=== PATIENT | male | born 1960 | race Caucasian/White ===

== ENCOUNTER 2022-12-19 10:05 | Outpatient (CLI) | payer SELFPAY ==
--- NOTE | 2022-12-19 11:40 | W.ANESCHARGE ---
Anesthesia Charges Start Date/Time Anesthesia Start Date: 12/19/22 Anesthesia Start Time: 11:55 Stop Date/Time Anesthesia Stop Date: 12/19/22 Anesthesia Stop Time: 12:20
--- NOTE | 2022-12-19 12:22 | W.ANESCHARGE ---
Anesthesia Charges Start Date/Time Anesthesia Start Date: 12/19/22 Anesthesia Start Time: 11:55 Stop Date/Time Anesthesia Stop Date: 12/19/22 Anesthesia Stop Time: 12:20
== END 2022-12-19 10:06 | disposition home or self-care (01) ==
PROVIDERS: PCP Family Medicine; Visit Provider Internal Medicine Gastroenterology
DX: Z12.11 Encounter for screening for malignant neoplasm of colon (principal); Z86.010 Personal history of colon polyps
CPT/HCPCS: 00811; 00812; 45378; J2704

== ENCOUNTER 2023-03-14 19:57 | Observation (INO) | payer BC, SELFPAY ==
[2023-03-14] VITALS (19 sets, daily range): BP systolic 126–184; BP diastolic 64–105; PULSE 146–156; RESP 20; TEMP 36.1; O2SAT 96–98; BMI 45.2
[2023-03-14 20:42] LABS: Appearance Urine Cloudy (Clear); Bilirubin Urine Negative (Negative); Blood Urine 3+ (Negative); Glucose Urine Negative (Negative); Ketones Urine Negative (Negative); Leukocyte Esterase Urine 2+ (Negative); Nitrite Urine Positive (Negative); Protein Urine 2+ (Negative); Specific Gravity Urine 1.025 (1.000-1.030); Urobilinogen Urine 0.2 (0.2-1.0); pH Urine 7.5 (5.0-8.5)
[2023-03-14 20:42] LABS: Glucose, Point-of-Care* 213 mg/dl (60-115)
[2023-03-14 20:48] LABS: Color Urine Yellow (Yellow)
--- NOTE | 2023-03-14 20:49 | ED.NURSE ---
to replace suprapubic catheter.
[2023-03-14 20:52] LABS: Bacteria Urine Moderate; Squamous Epithelial Cell Urine Few (None-Few)
[2023-03-14 21:07] LABS: Lactate* 3.4 mmol/L (0.5-1.9)
[2023-03-14 21:12] LABS: Basophils Absolute Auto 0.04 K/uL (0.00-0.30); Basophils Percent Auto 0.4 % (0.0-3.0); Eosinophils Absolute Auto 0.23 K/uL (0.00-0.50); Eosinophils Percent Auto 2.2 % (0.0-7.0); Hematocrit 40.4 % (37.0-53.0); Hemoglobin* 13.5 gm/dL (13.5-17.5); Immature Granulocytes Abs Auto 0.03 K/uL (0.00-0.30); Immature Granulocytes Pct Auto 0.3 %; Lymphocytes Absolute Auto 2.72 K/uL (0.90-2.90); Lymphocytes Percent Auto 25.6 % (20-44); Mean Corpuscular HGB Conc 33 gm/dL (32-36); Mean Corpuscular Hemoglobin 28 pg (26-34); Mean Corpuscular Volume 82 fL (80-100); Monocytes Percent Auto 7.4 % (0.0-11.0); Neutrophils Absolute Auto 6.82 K/uL (1.7-7.0); Neutrophils Percent Auto 64.1 % (42.0-72.0); Platelet Count* 301 K/uL (140-440); RDW Coefficient of Variation % 14.1 % (11.5-15.5); White Blood Count* 10.63 K/uL (4.50-11.00)
[2023-03-14 21:17] LABS: Slide Review Reflex No
[2023-03-14 21:24] LABS: Chloride* 97 mmol/L (96-114); Sodium* 137 mmol/L (135-149)
[2023-03-14 21:25] LABS: Potassium* 3.9 mmol/L (3.6-5.1)
[2023-03-14 21:27] LABS: Anion Gap 14 mEq/L (7-15); Blood Urea Nitrogen* 17 mg/dL (7-30); Carbon Dioxide* 26 mmol/L (20-32); Creatinine* 0.6 mg/dL (0.5-1.5); Est. Creatinine Clearance* 85.14; Estimated Glomerular Filt Rate 110 ml/min
[2023-03-14 21:28] LABS: Glucose* 230 mg/dL (60-115)
[2023-03-14] MEDS: ADENOSINE 6 MG/2ML INJ IVP (21:33)
[2023-03-14] MEDS: ADENOSINE 6 MG/2ML INJ 12 MG IVP (21:43)
--- NOTE | 2023-03-14 21:44 | CRLHL7_ITS ---
For Patients: As a result of the Century Cures Act, medical imaging exams and procedure reports are released immediately into your electronic medical record. You may view this report before your referring provider. If you have questions, please contact your health care provider. INDICATION: Lower abdominal pain, has suprapubic catheter TECHNIQUE: CT abdomen and pelvis acquired with 149 cc Isovue 370 IV contrast. Permanently recorded images are archived. COMPARISON: None. FINDINGS: Lower chest: Unremarkable. Liver: Diffuse fatty infiltration. Normal contour. No suspicious mass. Gallbladder and bile ducts: Unremarkable. No stones or inflammation. No biliary dilatation. Pancreas: Unremarkable. No mass or inflammation. Spleen: Unremarkable. Normal in size. No masses. Adrenal glands: Unremarkable. No nodules. Kidneys, Ureters, and Bladder: Unremarkable. No suspicious masses, stones, or hydronephrosis. Unremarkable ureters. Indwelling suprapubic catheter. Mural thickening and inflammatory stranding about the bladder. GI tract: Large colon stool burden. Normal in caliber. No sign of inflammation. Normal appendix. Vasculature: Normal caliber abdominal aorta with mild atherosclerotic calcification. Mesenteric arteries are patent. Lymph nodes: No lymphadenopathy. Peritoneum/Abdominal Wall: Small fat-containing left periumbilical hernia. No free air or significant free fluid. Pelvis: Unremarkable. Bones: Partial ankylosis of the right sacroiliac joint. Moderate-sized foci of avascular necrosis within the femoral heads. No subchondral bone plate collapse identified. Multilevel spondylosis. IMPRESSION: 1. Indwelling suprapubic catheter with mural thickening and inflammatory stranding about the bladder. Findings can represent cystitis. Recommend correlation with urinalysis. 2. Large colonic stool burden. Recommend correlation for constipation. 3. Hepatic steatosis. 4. Moderate-sized foci of avascular necrosis within the femoral heads. No definite subchondral bone plate collapse. Please note that all CT scans at this facility use dose modulation, iterative reconstruction, and/or weight-based dosing when appropriate to reduce radiation dose to as low as reasonably achievable. Dictated by Rickey Workman MD @ 03/15/2023 12:33:58 AM (Electronically Signed)
[2023-03-14] MEDS: dilTIAZem 5 MG/ML inj 25 MG IVP (21:59)
[2023-03-14 22:17] LABS: Troponin I* < 0.01 ng/mL (0.01-0.04)
[2023-03-14] MEDS: 0.9 % SODIUM CHLORIDE 1000 ml 1,000 ML IV (22:32)
--- NOTE | 2023-03-14 22:35 | ED.GENADULT ---
HPI - General Adult General Date Seen: 03/14/23 Chief complaint: Urogenital Problems, Male Stated complaint: backed up catheter Time Seen by Provider: 03/14/23 20:01 Source: patient Mode of arrival: ambulatory Limitations: no limitations History of Present Illness HPI narrative: Patient is a 62-year-old male with a history of frequent bladder infections her requiring suprapubic catheter, diabetes, hypertension presenting to emergency department for a clogged suprapubic catheter. States he will let the catheter initially placed about 3 months ago and was last changed 27 days ago. He was doing well with that up until this afternoon when he knows there is no more drainage coming from it. He since then has been needing to urinate small amounts through his urethra. He states this is the 1st time he has urinate normally and several months due to the suprapubic catheter. Was just open have the Rosario replaced. He is also very tachycardic in the 150s. He denies chest pain, shortness of breath, weakness, numbness, headache, diarrhea, fevers, chills. He is mildly diaphoretic but he states that is baseline for him. No history of AFib is not currently on any blood thinners. Related Data Home Medications Medication Instructions Recorded Confirmed amitriptyline 25 mg tablet 25 mg PO QPM 03/14/23 03/14/23 amlodipine 10 mg tablet 10 mg PO DAILY 03/14/23 03/14/23 aspirin 81 mg chewable tablet 81 mg PO DAILY 03/14/23 03/14/23 chlorthalidone 50 mg tablet 50 mg PO DAILY 03/14/23 03/14/23 cyclobenzaprine 10 mg tablet 10 mg PO 3XD 03/14/23 03/14/23 diazepam 5 mg tablet 5 mg PO ONCE 03/14/23 03/14/23 gemfibrozil 600 mg tablet 600 mg PO BID 03/14/23 03/14/23 glipizide 10 mg tablet, extended 10 mg PO BID 03/14/23 03/14/23 release 24 hr insulin degludec 200 unit/mL (3 unit subcut 03/14/23 mL) subcutaneous pen (Tresiba FlexTouch U-200 insulin) insulin lispro 100 unit/mL subcut 03/14/23 subcutaneous pen (Humalog KwikPen (U-100) Insulin) lisinopril 40 mg tablet 40 mg PO DAILY 03/14/23 03/14/23 meloxicam 7.5 mg tablet 7.5 mg PO DAILY 03/14/23 03/14/23 metformin 1,000 mg tablet 1,000 mg PO BID 03/14/23 03/14/23 metoprolol succinate 200 mg 200 mg PO DAILY 03/14/23 03/14/23 tablet,extended release 24 hr multivitamin (Daily Multi-Vitamin 1 tab PO DAILY 03/14/23 03/14/23 tablet) oxycodone 5 mg tablet mg PO 03/14/23 peg 3350 240 gram-electrolytes ml PO 03/14/23 22.72 gram-6.72 g-5.84 g powdr for soln (Gavilyte-C) potassium chloride 20 mEq 20 meq PO BID 03/14/23 03/14/23 tablet,extended release(part/cryst) (Klor-Con M) Allergies Allergy/AdvReac Type Severity Reaction Status Date / Time doxepin Allergy Unknown Verified 03/14/23 23:27 gabapentin Allergy Unknown Verified 03/14/23 23:27 nortriptyline Allergy Unknown Verified 03/14/23 23:27 bees Allergy Unknown Uncoded 03/14/23 23:27 statins Allergy Unknown Uncoded 03/14/23 23:27 tape Allergy Unknown Uncoded 03/14/23 23:27 Review of Systems Status of ROS: Reports: 10 or more systems reviewed and unremarkable except as noted in History and below [facility] Medical History Follicular cystitis ?N30.30 - Trigonitis without hematuria (ICD-10) Backache, unspecified ?M54.9 - Dorsalgia, unspecified (ICD-10) Osteoarthritis of spine ?M47.9 - Spondylosis, unspecified (ICD-10) HTN (hypertension) ?I10 - Essential (primary) hypertension (ICD-10) JAKUB (obstructive sleep apnea) ?G47.33 - Obstructive sleep apnea (adult) (pediatric) (ICD-10) Obesity ?E66.9 - Obesity, unspecified (ICD-10) Suprapubic catheter ?Z93.59 - Other cystostomy status (ICD-10) DJD (degenerative joint disease) ?M19.90 - Unspecified osteoarthritis, unspecified site (ICD-10) Uncontrolled type II diabetes mellitus Depression, major ?F32.9 - Major depressive disorder, single episode, unspecified (ICD-10) Adenomatous colon polyp ?D12.6 - Benign neoplasm of colon, unspecified (ICD-10) Social History Smoking Status: Never smoker Exam Narrative: Exam Narrative: Const: Well-nourished, Well-developed, in mild distress Eyes: PERRL, no conjunctival injection, and symmetrical lids HENT: Atraumatic external nose and ears. Moist mucous membranes. Neck: Symmetric, trachea midline, No thyromegaly. CVS: Tachycardic, No murmurs or gallops. Peripheral pulses 2+ and equal in all extremities RESP: Unlabored respiratory effort. Clear to auscultation bilaterally. GI: Suprapubic tenderness, suprapubic catheter in place, No rebound or guarding. MSK:Extremities w/o deformity, Normal Active ROM Skin: Warm, Dry. No rashes or lesions. Neuro: Normal Muscle tone, No focal neurological deficits. Psych: Awake, Alert, & Oriented x3. Appropriate mood and affect. Const: Vital Signs, click to edit/add: Vital Signs - 24 hr 03/14/23 20:10 03/14/23 20:11 03/14/23 20:12 Temperature 97.0 F L Pulse Rate 152 H 152 H Pulse Rate [Right Radial] 156 H Respiratory Rate 20 Blood Pressure 139/91 H Blood Pressure [Ri ght Upper Arm] 155/81 H Pulse Oximetry 97 96 97 Oxygen Delivery Me thod Room Air 03/14/23 20:15 03/14/23 20:33 03/14/23 20:34 Temperature Pulse Rate 151 H 149 H 151 H Pulse Rate [Right Radial] Respiratory Rate Blood Pressure 184/105 H Blood Pressure [Ri ght Upper Arm] Pulse Oximetry 97 98 97 Oxygen Delivery Me thod 03/14/23 20:45 03/14/23 20:47 03/14/23 20:48 Temperature Pulse Rate 149 H 147 H 146 H Pulse Rate [Right Radial] Respiratory Rate Blood Pressure 178/83 H Blood Pressure [Ri ght Upper Arm] Pulse Oximetry 98 98 98 Oxygen Delivery Me thod 03/14/23 21:02 03/14/23 21:17 03/14/23 21:32 Temperature Pulse Rate Pulse Rate [Right Radial] Respiratory Rate Blood Pressure 154/97 H 147/89 H 134/87 Blood Pressure [Ri ght Upper Arm] Pulse Oximetry Oxygen Delivery Me thod 03/14/23 21:46 03/14/23 21:51 03/14/23 21:58 Temperature Pulse Rate Pulse Rate [Right Radial] Respiratory Rate Blood Pressure 139/93 H 138/76 157/74 H Blood Pressure [Ri ght Upper Arm] Pulse Oximetry Oxygen Delivery Me thod 03/14/23 22:02 03/14/23 22:17 03/14/23 22:31 Temperature Pulse Rate Pulse Rate [Right Radial] Respiratory Rate Blood Pressure 138/70 139/75 141/77 H Blood Pressure [Ri ght Upper Arm] Pulse Oximetry Oxygen Delivery Me thod 03/14/23 22:47 Temperature Pulse Rate Pulse Rate [Right Radial] Respiratory Rate Blood Pressure 126/64 Blood Pressure [Ri ght Upper Arm] Pulse Oximetry Oxygen Delivery Me thod Course Vital Signs Vital signs: Initial Vital Signs Temperature 97.0 F L 03/14/23 20:10 Temperature Source Temporal Artery Scan 03/14/23 20:10 Pulse Rate 156 H 03/14/23 20:10 Respiratory Rate 20 03/14/23 20:10 Blood Pressure 155/81 H 03/14/23 20:10 Blood Pressure Mean 105 03/14/23 20:10 Blood Pressure Position Sitting 03/14/23 20:10 Pulse Oximetry 97 03/14/23 20:10 Oxygen Delivery Method Room Air 03/14/23 20:10 Vital Signs Temperature 97.0 F L 03/14/23 20:10 Pulse Rate 156 H 03/14/23 20:10 Respiratory Rate 20 03/14/23 20:10 Blood Pressure 155/81 H 03/14/23 20:10 Pulse Oximetry 97 03/14/23 20:10 Oxygen Delivery Method Room Air 03/14/23 20:10 Temperature 97.0 F L 03/14/23 20:10 Pulse Rate 146 H 03/14/23 20:48 Respiratory Rate 20 03/14/23 20:10 Blood Pressure 126/64 03/14/23 22:47 Pulse Oximetry 98 03/14/23 20:48 Oxygen Delivery Method Room Air 03/14/23 20:10 Medications Administered Medications: Discontinued Medications Generic Name Dose Route Start Last Admin Trade Name Sun PRN Reason Stop Dose Admin Adenosine 6 mg 03/14/23 21:26 03/14/23 21:33 Adenosine 6 Mg/2ml Inj IVP 03/14/23 21:27 6 mg ONCE ONE Administration Adenosine 12 mg 03/14/23 21:44 03/14/23 21:43 Adenosine 6 Mg/2ml Inj IVP 03/14/23 21:45 12 mg ONCE ONE Administration Diltiazem HCl 25 mg 03/14/23 21:44 03/14/23 21:59 Diltiazem 5 Mg/Ml Inj IVP 03/14/23 21:45 25 mg ONCE ONE Administration Sodium Chloride 1,000 mls @ 1,000 mls/hr 03/14/23 22:30 03/14/23 22:34 0.9 % Sodium Chloride 1000 Ml IV 03/14/23 23:29 Infused .Q1H VIOLETTA Infusion Medical Decision Making MDM Narrative Medical decision making narrative: Patient is a 62-year-old male presenting for Rosario catheter issues. Is not been draining. I did replace it and we were able to drain a small amount but then appeared to have clogged again. We monitored it to see if there is any improvement. While he was 1st triaged his heart rate was in the 150s. EKG was done appear to be regular and rhythm so I cannot say with SVT or a flutter/AFib. CBC, CMP, troponin, lactate, urinalysis were all ordered. Initially was given adenosine to try and break the rhythm. 6 mg a not work and then return 12 mg without success. After that he was given a dose of Cardizem. His heart rate then came down to the 100s. He was not initially getting good drainage from his Rosario. Lactate is 3.4. Urine appears infected. This year did come from his urethra and not a suprapubic catheter so I do not believe it is a chronic contamination. He does currently meet SIRS criteria. Abdominal CT ordered to better evaluate his abdominal pain. CT scan returned showing signs of cystitis. He is now getting better drainage and blood clot did past. He does state that normal for him. States his abdominal pain is improved now He is now in normal sinus rhythm and another EKG was done showing this. He was admitted to the hospitalist service Lab Data Labs: Lab Results 03/14/23 03/14/23 03/14/23 Range/Units 20:30 20:30 20:35 WBC 10.63 (4.50-11.00) K/uL RBC 4.90 (4.30-5.90) m/uL Hgb 13.5 (13.5-17.5) gm/dL Hct 40.4 (37.0-53.0) % MCV 82 (80-100) fL MCH 28 (26-34) pg MCHC 33 (32-36) gm/dL RDW Coeff of Nacho 14.1 (11.5-15.5) % Plt Count 301 (140-440) K/uL Neut % (Auto) 64.1 (42.0-72.0) % Lymph % (Auto) 25.6 (20-44) % Smith % (Auto) 7.4 (0.0-11.0) % Eos % (Auto) 2.2 (0.0-7.0) % Baso % (Auto) 0.4 (0.0-3.0) % Neut # (Auto) 6.82 (1.7-7.0) K/uL Lymph # (Auto) 2.72 (0.90-2.90) K/uL Smith # (Auto) 0.80 (0.00-0.90) K/UL Eos # (Auto) 0.23 (0.00-0.50) K/uL Baso # (Auto) 0.04 (0.00-0.30) K/uL Abs Immat Gran (auto) 0.03 (0.00-0.30) K/uL Imm/Tot Granulo (auto) 0.3 % Sodium 137 (135-149) mmol/L Potassium 3.9 (3.6-5.1) mmol/L Chloride 97 (96-114) mmol/L Carbon Dioxide 26 (20-32) mmol/L Anion Gap 14 (7-15) mEq/L BUN 17 (7-30) mg/dL Creatinine 0.6 (0.5-1.5) mg/dL Estimated Creat Clear 85.14 Estimated GFR 110 ml/min Glucose 230 H (60-115) mg/dL Lactate 3.4 H (0.5-1.9) mmol/L Calcium 9.0 (8.4-10.6) mg/dL Troponin I < 0.01 L Cancelled (0.01-0.04) ng/mL Urine Color Yellow (Yellow) Urine Appearance Cloudy A (Clear) Urine pH 7.5 (5.0-8.5) Ur Specific [place] 1.025 (1.000-1.030) Urine Protein 2+ A (Negative) Urine Glucose (UA) Negative (Negative) Urine Ketones Negative (Negative) Urine Blood 3+ A (Negative) Urine Nitrite Positive A (Negative) Urine Bilirubin Negative (Negative) Urine Urobilinogen 0.2 (0.2-1.0) Ur Leukocyte Esterase 2+ A (Negative) Urine RBC 5-10 A (0-2) Urine WBC 10-25 A (0-5) Urine WBC Clumps None (None) Ur Squamous Epith Cells Few (None-Few) Urine Bacteria Moderate A (None) POC Glucose 213 H (60-115) mg/dl Imaging Data CT scan abdomen pelvis: Radiologist's impression: 1. Indwelling suprapubic catheter with mural thickening and inflammatory stranding about the bladder. Findings can represent cystitis. Recommend correlation with urinalysis. 2. Large colonic stool burden. Recommend correlation for constipation. 3. Hepatic steatosis. 4. Moderate-sized foci of avascular necrosis within the femoral heads. No definite subchondral bone plate collapse. Please note that all CT scans at this facility use dose modulation, iterative reconstruction, and/or weight-based dosing when appropriate to reduce radiation dose to as low as reasonably achievable. Dictated by Rickey Workman MD @ 03/15/2023 12:33:58 AM ECG Data Attestation: I personally reviewed and interpreted this ECG as follows: Prior ECG tracings: not available for review Interpretation: EKG 20:28 a flutter with the parent to the 1 conduction and rate of 151 beats per minute, normal axis, does appear to have some T-wave inversions in lateral leads. This could secondary to heart strain EKG 22:08 shortly after Cardizem: AFib with RVR, rate of 113 beats per minute, normal axis, no ST abnormalities. T-waves appear to have flattened out the lateral leads EKG 01:00: Normal sinus rhythm rate 96 beats per minute, normal intervals, axis, no ST or T-wave abnormalities Discharge Plan Discharge Clinical Impression: Urinary tract infection, Paroxysmal A-fib Patient Disposition: Admitted As Observation Condition: Improved
[2023-03-15 01:55] VITALS: PULSE 103; O2SAT 98
[2023-03-15 01:56] VITALS: BP 130/75; PULSE 101; O2SAT 97
--- NOTE | 2023-03-15 02:17 | ED.NURSE ---
Report to accepting MS RN. Patient transported to [facility] via electric scooter accompanied by staff.
[2023-03-15 02:18] VITALS: BP 130/76; PULSE 104; RESP 20; TEMP 36.4; O2SAT 97; BMI 45.2
[2023-03-15 02:42] VITALS: PULSE 95
--- NOTE | 2023-03-15 03:31 | W.PM.THH&P_ITS ---
Telehealth- H&P: [facility] History of Present Illness Date Seen: 03/15/23 Chief complaint: backed up catheter Narrative: Peter Carpenter is seen as an Interactive Telehealth visit. Peter Carpenter is a 62 year old male who is Seen in his hospital room at [facility] with the assistance of nursing staff. He has been admitted through the emergency room. He tells me he has had a suprapubic catheter since December. 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 Patient has had ongoing bladder problems or difficulty time emptying his bladder. Ultimately he had a suprapubic catheter placed done. He just came off of about 6 weeks of ertapenem. Patient was in his usual state of health but started to notice he was not having any drainage out of his suprapubic catheter but urinating through his urethra which is somewhat abnormal for him. He would go a small amount and not have to go again. No fevers no chills he did not feel sick. Ultimately he reported to the hospital he was evaluated and found to have a blocked suprapubic catheter. In the process of working up he was also noted to have heart rate of around 150. He was in atrial fibrillation with rapid ventricular response. He did get a dose of adenosine in the emergency room caleb colvin received a dose of diltiazem and is now converted back to normal sinus rhythm. Patient denies any fevers or chills abdominal pain blood in urine blood in the stool. He does not have any other complaints of. He was noted to have an elevated lactic acid. He has now been admitted for further evaluation and treatment. Review of Systems Narrative: A complete review of systems was performed positive pertinence [place] [facility] [place] (Updated 03/15/23 @ 03:37 by Lalo Wu DO) Follicular cystitis ?N30.30 - Trigonitis without hematuria (ICD-10) Backache, unspecified ?M54.9 - Dorsalgia, unspecified (ICD-10) Osteoarthritis of spine ?M47.9 - Spondylosis, unspecified (ICD-10) HTN (hypertension) ?I10 - Essential (primary) hypertension (ICD-10) JAKUB (obstructive sleep apnea) ?G47.33 - Obstructive sleep apnea (adult) (pediatric) (ICD-10) Obesity ?E66.9 - Obesity, unspecified (ICD-10) Suprapubic catheter ?Z93.59 - Other cystostomy status (ICD-10) DJD (degenerative joint disease) ?M19.90 - Unspecified osteoarthritis, unspecified site (ICD-10) Uncontrolled type II diabetes mellitus Depression, major ?F32.9 - Major depressive disorder, single episode, unspecified (ICD-10) Adenomatous colon polyp ?D12.6 - Benign neoplasm of colon, unspecified (ICD-10) Social History What is your current living situation?: I presently have a place to live Problems where you live: no known problems Problems where you live details: n/a In the past 12 months, utilities in danger of being shut off: no In past 12 months, lack of transportation kept you from medical appts, meetings, work, or getting things needed for daily living: no In the past 12 mos, have been you worried that your food would run out before you had money to buy more?: never true In the past 12 mos, the food you bought just didn't last and you didn't have money to buy more?: never true Smoking Status: Former smoker What tobacco products do you use: cigarettes Smoking quit date/years: >15 years ago How often do you have a drink containing alcohol: monthly or less How often do you have six or more drinks on one occasion: Never AUDIT-C Alcohol total score: 1 Non-prescribed substance use: denies use Caffeine: No How often does anyone, including family, friends and others, physically hurt you : never How often does anyone, including family, friends and others, insult or talk down to you: never How often does anyone, including family, friends and others, threaten you with harm: never How often does anyone, including family, friends and others, scream or curse at you: never Meds Home Medications and Allergies Home Medications Medication Instructions Recorded Confirmed Type amitriptyline 25 mg tablet 25 mg PO QPM 03/14/23 03/14/23 History amlodipine 10 mg tablet 10 mg PO DAILY 03/14/23 03/14/23 History aspirin 81 mg chewable tablet 81 mg PO DAILY 03/14/23 03/14/23 History chlorthalidone 50 mg tablet 50 mg PO DAILY 03/14/23 03/14/23 History cyclobenzaprine 10 mg tablet 10 mg PO 3XD 03/14/23 03/14/23 History diazepam 5 mg tablet 5 mg PO ONCE 03/14/23 03/14/23 History gemfibrozil 600 mg tablet 600 mg PO BID 03/14/23 03/14/23 History glipizide 10 mg tablet, extended 10 mg PO BID 03/14/23 03/14/23 History release 24 hr insulin degludec 200 unit/mL (3 unit subcut 03/14/23 History mL) subcutaneous pen (Tresiba FlexTouch U-200 insulin) insulin lispro 100 unit/mL subcut 03/14/23 History subcutaneous pen (Humalog KwikPen (U-100) Insulin) lisinopril 40 mg tablet 40 mg PO DAILY 03/14/23 03/14/23 History meloxicam 7.5 mg tablet 7.5 mg PO DAILY 03/14/23 03/14/23 History metformin 1,000 mg tablet 1,000 mg PO BID 03/14/23 03/14/23 History metoprolol succinate 200 mg 200 mg PO DAILY 03/14/23 03/14/23 History tablet,extended release 24 hr multivitamin (Daily Multi-Vitamin 1 tab PO DAILY 03/14/23 03/14/23 History tablet) oxycodone 5 mg tablet mg PO 03/14/23 History peg 3350 240 gram-electrolytes ml PO 03/14/23 History 22.72 gram-6.72 g-5.84 g powdr for soln (Gavilyte-C) potassium chloride 20 mEq 20 meq PO BID 03/14/23 03/14/23 History tablet,extended release(part/cryst) (Klor-Con M) Allergies Allergy/AdvReac Type Severity Reaction Status Date / Time doxepin Allergy Unknown Verified 03/14/23 23:27 gabapentin Allergy Unknown Verified 03/14/23 23:27 nortriptyline Allergy Unknown Verified 03/14/23 23:27 bees Allergy Unknown Uncoded 03/14/23 23:27 statins Allergy Unknown Uncoded 03/14/23 23:27 tape Allergy Unknown Uncoded 03/14/23 23:27 Exam Narrative Exam Narrative: Physical Exam Patient is sitting up in the chair GENERAL: ?vital signs reviewed, well developed and nourished, in no distress He is sittiing up in a chair HEENT: pupils are equal round and reactive to light, extraocular movements are grossly within normal limits and oral mucosa is moist. NECK: Supple without lymphadenopathy or thyromegaly according to nursing staff examination observation HEART: Regular rate and rhythm without any rubs, murmurs, or gallops. LUNGS: Clear to auscultation bilaterally with good air movement throughout ABDOMEN: Observation from nurse assisted exam, abdomen appears soft, nontender, and nondistended with Positive bowel sounds noted. EXTREMITIES: Strength and sensation is observed to be grossly within normal limits in the upper and lower extremities.? No focal strength deficit is observed. He has 1 plus edema SKIN:? Observed warm and dry with color normal Const Vital Signs, click to edit/add: Vital Signs - 24 hr 03/14/23 20:10 03/14/23 20:11 03/14/23 20:12 Temperature 97.0 F L Pulse Rate 152 H 152 H Pulse Rate [Pulse Oximeter] Pulse Rate [Right Radial] 156 H Respiratory Rate 20 Blood Pressure 139/91 H Blood Pressure [Left Arm] Blood Pressure [Right Upper Arm] 155/81 H Pulse Oximetry 97 96 97 Oxygen Delivery Method Room Air 03/14/23 20:15 03/14/23 20:33 03/14/23 20:34 Temperature Pulse Rate 151 H 149 H 151 H Pulse Rate [Pulse Oximeter] Pulse Rate [Right Radial] Respiratory Rate Blood Pressure 184/105 H Blood Pressure [Left Arm] Blood Pressure [Right Upper Arm] Pulse Oximetry 97 98 97 Oxygen Delivery Method 03/14/23 20:45 03/14/23 20:47 03/14/23 20:48 Temperature Pulse Rate 149 H 147 H 146 H Pulse Rate [Pulse Oximeter] Pulse Rate [Right Radial] Respiratory Rate Blood Pressure 178/83 H Blood Pressure [Left Arm] Blood Pressure [Right Upper Arm] Pulse Oximetry 98 98 98 Oxygen Delivery Method 03/14/23 21:02 03/14/23 21:17 03/14/23 21:32 Temperature Pulse Rate Pulse Rate [Pulse Oximeter] Pulse Rate [Right Radial] Respiratory Rate Blood Pressure 154/97 H 147/89 H 134/87 Blood Pressure [Left Arm] Blood Pressure [Right Upper Arm] Pulse Oximetry Oxygen Delivery Method 03/14/23 21:46 03/14/23 21:51 03/14/23 21:58 Temperature Pulse Rate Pulse Rate [Pulse Oximeter] Pulse Rate [Right Radial] Respiratory Rate Blood Pressure 139/93 H 138/76 157/74 H Blood Pressure [Left Arm] Blood Pressure [Right Upper Arm] Pulse Oximetry Oxygen Delivery Method 03/14/23 22:02 03/14/23 22:17 03/14/23 22:31 Temperature Pulse Rate Pulse Rate [Pulse Oximeter] Pulse Rate [Right Radial] Respiratory Rate Blood Pressure 138/70 139/75 141/77 H Blood Pressure [Left Arm] Blood Pressure [Right Upper Arm] Pulse Oximetry Oxygen Delivery Method 03/14/23 22:47 03/15/23 01:55 03/15/23 01:56 Temperature Pulse Rate 103 H 101 H Pulse Rate [Pulse Oximeter] Pulse Rate [Right Radial] Respiratory Rate Blood Pressure 126/64 130/75 Blood Pressure [Left Arm] Blood Pressure [Right Upper Arm] Pulse Oximetry 98 97 Oxygen Delivery Method 03/15/23 02:18 03/15/23 03:16 Temperature 97.6 F Pulse Rate Pulse Rate [Pulse Oximeter] 104 H Pulse Rate [Right Radial] Respiratory Rate 20 Blood Pressure Blood Pressure [Left Arm] 130/76 Blood Pressure [Right Upper Arm] Pulse Oximetry 97 Oxygen Delivery Method Room Air Room Air Hospitalist - H&P: Result Labs Labs: Short CBC 03/14/23 Range/Units 20:30 WBC 10.63 (4.50-11.00) K/uL Hgb 13.5 (13.5-17.5) gm/dL Hct 40.4 (37.0-53.0) % Plt Count 301 (140-440) K/uL BMP 03/14/23 20:30 Sodium 137 Potassium 3.9 Chloride 97 Carbon Dioxide 26 BUN 17 Creatinine 0.6 Glucose 230 H Calcium 9.0 Cardiac Enzymes 03/14/23 03/14/23 Range/Units 20:30 20:30 Troponin I < 0.01 L Cancelled (0.01-0.04) ng/mL Urine 03/14/23 Range/Units 20:35 Urine Color Yellow (Yellow) Urine Appearance Cloudy A (Clear) Urine pH 7.5 (5.0-8.5) Ur Specific [place] 1.025 (1.000-1.030) Urine Protein 2+ A (Negative) Urine Glucose (UA) Negative (Negative) Assessment and Plan Assessment and plan (1) Urinary tract infection: Status: Acute (2) Paroxysmal A-fib: Status: Acute (3) Elevated lactic acid level: Status: Acute (4) HTN (hypertension): Status: Acute (5) Obesity: Status: Acute (6) Suprapubic catheter: Status: Acute (7) Uncontrolled type II diabetes mellitus: Status: Acute Plan Urinary tract infection?patient is likely colonized. But may be developing symptoms. He does have an elevated lactic acid, he is also has new atrial fibrillation with rapid ventricular response. I do think we need to presume this is secondary to urinary tract infection. Patient also appears to have had many resistant organisms. At this point he has been most recently on ertapenem which appears to have been effective. Will continue this for now. Urine cultures have been sent. Paroxysmal atrial fibrillation?patient with A-fib with RVR. Patient tells me he has not does not have a history of atrial fibrillation. Will check an echocardiogram in the morning. Will make sure magnesium has been added on as well as a TSH. Elevated lactic acid?query early sepsis. Patient does not look toxic does not seem to elevated white count. Will plan to recheck this. Hypertension?continue his home medications Obesity?encourage exercise weight loss. This may help with his chronic pain breathing and a multitude of other problems including his diabetes Suprapubic catheter?this is relatively new. Patient with resistant organisms could consider trying to reach his urologist at the [facility] for advice. On the other hand clinically it does seem like he is likely infected probably needs 7 to 10 days of antibiotics as this is a complex urinary tract infection. Also just is likely he is colonized at baseline. Diabetes?type II we will plan to continue home medications will hold his metformin because of the elevated lactic acid this can be restarted once he is glucoses have stabilized. DVT prophylaxis will not be started as anticipate a short hospital stay if he remains hospitalized more than 48 hours that should be considered CODE STATUS was reviewed on admission he wishes to be a DNR/DNI. I did encourage him to discuss this with his . He does tell me that he plans to. But does believe she knows that he would not want to be Alive on machines and this is consistent with his previous wishes. Today's History and Physical is provided via interactive telehealth by ( Your Name).? Patient is located at [facility].? Provider is located at [email or web address] Nursing staff assisted with the patient's exam. The visit being done today meets criteria for a telehealth visit and the patient or patient?s parent/guardian is aware the visit is a telehealth visit. Camera Start Time:245 am Camera End Time: 306 AM Lalo Wu DO, Pharm. D. Telehealth: Statement Statement Telehealth Visit: Today's History and Physical is provided via interactive telehealth by Lalo Wu DO.? Patient is located at [facility].? Provider is located at [email or web address] Nursing staff assisted with the patient's exam. The visit being done today meets criteria for a telehealth visit and the patient or patient?s parent/guardian is aware the visit is a telehealth visit.
[2023-03-15] MEDS: ERTAPENEM 1 GM in 0.9 % SODIUM CHLORIDE Mini-bag 100 ML IVPB (04:40)
[2023-03-15 06:07] LABS: Lactate* 1.5 mmol/L (0.5-1.9)
[2023-03-15 07:00] VITALS: PULSE 95; RESP 20
--- NOTE | 2023-03-15 07:02 | PC.NURSE ---
pt to floor at 0218. Pleasant and cooperative. Pt has his own scooter here, per pt at home he uses a cane to ambulate, but for long distances he uses the scooter.? C/o tenderness near catheter site, redness and purulent drainage noted at catheter site. Catheter patent and draining. ?
[2023-03-15] MEDS: MULTIVITAMIN/MINERALS 1 TABLET 1 TAB PO (08:26)
[2023-03-15] MEDS: METOPROLOL SUCCINATE (XL) 100 MG TAB 200 MG PO (08:26)
[2023-03-15] MEDS: AMLODIPINE 10 MG TABLET PO (08:26)
[2023-03-15] MEDS: CHLORTHALIDONE 25 MG TABLET 50 MG PO (08:26)
[2023-03-15] MEDS: ASPIRIN 81 MG TAB.CHEW PO (08:27)
[2023-03-15] MEDS: lisinopriL 20 MG TABLET 40 MG PO (08:27)
[2023-03-15] MEDS: glipiZIDE XL 5 MG TAB 10 MG PO (08:28)
[2023-03-15] MEDS: gemfibroziL 600 MG TABLET PO (08:38)
--- NOTE | 2023-03-15 09:58 | PC.NURSE ---
Discharge: patient discharged to home today at 0930. IV removed intact. Patient A/O, pleasant and cooperative. VSS. 98% on RA. Suprapubic catheter patent and draining. Patient able to independently empty bag. Patient indep. in RM. tolerating a reg diet. Discharge instructions given and signed, belongings list signed.
--- NOTE | 2023-03-15 15:01 | PM.DS1 ---
DS: Providers Provider Date Seen: 03/15/23 Date of admission: 03/15/23 02:10 Primary care physician: Attila Cummings MD Admitting Clinician: Isamar Lacey MD Consults: 03/15/23 05:08 Consult to Cert Pharmacy Tech [CONS] Routine Comment: Reason for Consult:: PT Requests Adv Dir Info Attending Physician on discharge: Domenico Holloway MD Date of Discharge: 03/15/23 DS: Diagnosis Discharge Diagnosis (1) Obstructed suprapubic catheter: Status: Acute Problem details: Replaced and working (2) Elevated lactic acid level: Status: Acute Problem details: Resolved with fluids (3) Paroxysmal A-fib: Status: Acute Problem details: Resolved without specific intervention. Recommend echocardiogram, anticoagulation, Cardiology consult. Patient will arrange this with [facility] (4) Urinary tract infection: Status: Acute Problem details: Not symptomatic. Likely colonized from suprapubic catheter. Treat if symptomatic. Culture pending (5) Hematuria: Status: Acute Problem details: Chronic. Concern for hematuria getting worse in the presence of anticoagulation (6) JAKUB (obstructive sleep apnea): Status: Acute DS: Summary Hospital Course Hospital Course: 62-year-old male with longstanding prostate and bladder problems presents the emergency department with obstruction of his suprapubic catheter. Patient is had longstanding issues with recurrent urinary tract infections. This summer he was treated with a prolonged course of fosfomycin. He had a 6 week treatment with IV ertapenem from the beginning of December to mid January for chronic prostatitis. He has a relatively resistant E coli in his urine on repeat cultures. He was having severe urinary urgency and frequency causing him to void every 10 minutes and keeping him from really being able to function outside of the house. Because this is suprapubic catheter was placed which is given him a great amount of relief of this urinary frequency problem. In the last month he has not been back on antibiotics and reportedly doing fairly well. Yesterday his catheter quit putting out urine and he started voiding through his penis. He attempted irrigate the catheter without success. Because this he came to the emergency room. His catheter was replaced and this worked well for him. One is in the emergency department he was incidentally noted to have a very rapid heart rate. This was subsequently felt to be an episode of atrial fibrillation with a heart rate around 150. Had no previous history of cardiac problems, tachycardia. He is not aware of his tachy dysrhythmia. He did not have palpitations or chest pain or shortness of breath. This episode resolved spontaneously without specific therapy. Also in the emergency department he was found to have abnormal urinalysis with 5-10 red cells per high-power field and 10-25 white cells per high-power field. He was started on ertapenem for treatment of a possible UTI. He is not having symptoms of UTI such as fever or flank pain. Only had his blood catheter and that new return of voiding through his penis with some urgency. Is voiding problems resolved with placement of a new catheter. He now reports feeling fine and is anxious to leave the hospital. He had an uneventful night in the hospital without any symptoms. He remains in a normal sinus rhythm. His troponin was normal last night. Lactate was elevated at 3.4 and came down to 1.5 this morning. Patient has a history of blood in his urine. 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 Does take aspirin at home. He has had problems with blood clots in his catheter at times and other times he just has gross hematuria. We discussed in some length today a plan of care regarding this episode of atrial fibrillation. I explained to him that our strategy acutely now would be rate control and anticoagulation. Since he has converted spontaneously I think rate control is no longer needed. I still thought there might be an indication for anticoagulation for stroke prophylaxis but I am quite concerned about his history of ongoing hematuria. I have recommended that he speak with his urologist and jewelry estimator to decide what the most appropriate next steps would be for this. I offered to obtain an echocardiogram today but he is anxious to leave the hospital and tells me that he will get it arranged through his physicians at [facility]. At this point since it appears that he is having asymptomatic bacteriuria with an indwelling suprapubic catheter I informed him that he is likely chronically colonized and that we would necessarily need to treat him unless he was having symptoms. We discussed the symptoms that should bring him back to the hospital: Fever or flank pain or voiding symptoms, exertional dyspnea, chest pain or palpitations. I have asked him to check his temperature, blood pressure and pulse at home with quit min he has available to him. If these are abnormal he may need to come to the emergency department for further evaluation. Status at Discharge Functional status at discharge: independent ambulation Overall status at discharge: patient is progressing back to baseline Time Spent with Patient Time attestation: Total time spent providing and/or coordinating discharge services: Time spent: Greater than 30 minutes Exam Narrative: Exam Narrative: He is alert and appears in no distress. Oropharynx with small airway. Respirations are clear to auscultation. Cardiovascular: S1, S2, regular rate and rhythm. Abdomen is soft without tenderness or mass. Suprapubic tube has minimal erythema at the puncture site. Catheter is placed draining a relatively clear yellow urine. Extremities with intact pulses and sensation and good capillary refill. Const: Vital Signs, click to edit/add: Vital Signs - 24 hr 03/14/23 20:10 03/14/23 20:11 03/14/23 20:12 Temperature 97.0 F L Pulse Rate 152 H 152 H Pulse Rate [Pulse Oximeter] Pulse Rate [Right Radial] 156 H Respiratory Rate 20 Blood Pressure 139/91 H Blood Pressure [Le ft Arm] Blood Pressure [Ri ght Upper Arm] 155/81 H Pulse Oximetry 97 96 97 Oxygen Delivery Me thod Room Air 03/14/23 20:15 03/14/23 20:33 03/14/23 20:34 Temperature Pulse Rate 151 H 149 H 151 H Pulse Rate [Pulse Oximeter] Pulse Rate [Right Radial] Respiratory Rate Blood Pressure 184/105 H Blood Pressure [Le ft Arm] Blood Pressure [Ri ght Upper Arm] Pulse Oximetry 97 98 97 Oxygen Delivery Me thod 03/14/23 20:45 03/14/23 20:47 03/14/23 20:48 Temperature Pulse Rate 149 H 147 H 146 H Pulse Rate [Pulse Oximeter] Pulse Rate [Right Radial] Respiratory Rate Blood Pressure 178/83 H Blood Pressure [Le ft Arm] Blood Pressure [Ri ght Upper Arm] Pulse Oximetry 98 98 98 Oxygen Delivery Me thod 03/14/23 21:02 03/14/23 21:17 03/14/23 21:32 Temperature Pulse Rate Pulse Rate [Pulse Oximeter] Pulse Rate [Right Radial] Respiratory Rate Blood Pressure 154/97 H 147/89 H 134/87 Blood Pressure [Le ft Arm] Blood Pressure [Ri ght Upper Arm] Pulse Oximetry Oxygen Delivery Me thod 03/14/23 21:46 03/14/23 21:51 03/14/23 21:58 Temperature Pulse Rate Pulse Rate [Pulse Oximeter] Pulse Rate [Right Radial] Respiratory Rate Blood Pressure 139/93 H 138/76 157/74 H Blood Pressure [Le ft Arm] Blood Pressure [Ri ght Upper Arm] Pulse Oximetry Oxygen Delivery Me thod 03/14/23 22:02 03/14/23 22:17 03/14/23 22:31 Temperature Pulse Rate Pulse Rate [Pulse Oximeter] Pulse Rate [Right Radial] Respiratory Rate Blood Pressure 138/70 139/75 141/77 H Blood Pressure [Le ft Arm] Blood Pressure [Ri ght Upper Arm] Pulse Oximetry Oxygen Delivery Me thod 03/14/23 22:47 03/15/23 01:55 03/15/23 01:56 Temperature Pulse Rate 103 H 101 H Pulse Rate [Pulse Oximeter] Pulse Rate [Right Radial] Respiratory Rate Blood Pressure 126/64 130/75 Blood Pressure [Le ft Arm] Blood Pressure [Ri ght Upper Arm] Pulse Oximetry 98 97 Oxygen Delivery Tx thod 03/15/23 02:18 03/15/23 02:42 03/15/23 03:16 Temperature 97.6 F Pulse Rate 95 Pulse Rate [Pulse Oximeter] 104 H Pulse Rate [Right Radial] Respiratory Rate 20 Blood Pressure Blood Pressure [Le ft Arm] 130/76 Blood Pressure [Ri ght Upper Arm] Pulse Oximetry [facility] 03/15/23 07:00 03/15/23 07:00 Temperature Pulse Rate 95 Pulse Rate [Pulse Oximeter] 95 Pulse Rate [Right Radial] Respiratory Rate 20 Blood Pressure Blood Pressure [Le ft Arm] Blood Pressure [Ri ght Upper Arm] Pulse Oximetry [facility] provider has reviewed patient's vital signs: yes DS: Data Data Completed and Pending Labs on day of discharge: Labs from last 24 hours 03/15/23 03/15/23 03/14/23 07:42 05:43 20:35 WBC RBC Hgb Hct MCV MCH MCHC RDW Coeff of Nacho Plt Count Neut % (Auto) Lymph % (Auto) [place] % (Auto) Eos % (Auto) Baso % (Auto) Neut # (Auto) Lymph # (Auto) [place] # (Auto) Eos # (Auto) Baso # (Auto) Abs Immat Gran (auto) Imm/Tot Granulo (auto) Sodium Potassium Chloride Carbon Dioxide Anion Gap BUN Creatinine Estimated Creat Clear Estimated GFR Glucose Lactate 1.5 Calcium Troponin I TSH 1.930 Urine Color Yellow Urine Appearance Cloudy A Urine pH 7.5 Ur Specific [place] 1.025 Urine Protein 2+ A Urine Glucose (UA) Negative Urine Ketones Negative Urine Blood 3+ A Urine Nitrite Positive A Urine Bilirubin Negative Urine Urobilinogen 0.2 Ur Leukocyte Esterase 2+ A Urine RBC 5-10 A Urine WBC 10-25 A Urine WBC Clumps None Ur Squamous Epith Cells Few Urine Bacteria Moderate A Lab Acknowledgement Test Added POC Glucose 03/14/23 03/14/23 20:30 20:30 WBC 10.63 RBC 4.90 Hgb 13.5 Hct 40.4 MCV 82 MCH 28 MCHC 33 RDW Coeff of Nacho 14.1 Plt Count 301 Neut % (Auto) 64.1 Lymph % (Auto) 25.6 [place] % (Auto) 7.4 Eos % (Auto) 2.2 Baso % (Auto) 0.4 Neut # (Auto) 6.82 Lymph # (Auto) 2.72 [place] # (Auto) 0.80 Eos # (Auto) 0.23 Baso # (Auto) 0.04 Abs Immat Gran (auto) 0.03 Imm/Tot Granulo (auto) 0.3 Sodium 137 Potassium 3.9 Chloride 97 Carbon Dioxide 26 Anion Gap 14 BUN 17 Creatinine 0.6 Estimated Creat Clear 85.14 Estimated GFR 110 Glucose 230 H Lactate 3.4 H Calcium 9.0 Troponin I Cancelled < 0.01 L TSH Urine Color Urine Appearance Urine pH Ur Specific [place] Urine Protein Urine Glucose (UA) Urine Ketones Urine Blood Urine Nitrite Urine Bilirubin Urine Urobilinogen Ur Leukocyte Esterase Urine RBC Urine WBC Urine WBC Clumps Ur Squamous Epith Cells Urine Bacteria Lab Acknowledgement POC Glucose 213 H Preliminary micro results at discharge 03/14/23 20:37 Urine Culture - Preliminary Urine,Clean Catch Gram negative genaro Discharge Plan Discharge Disposition: Home, Self-Care Date of Admission: 03/15/23 02:10 Attending Provider on Discharge: Eh Holloway Primary Care Provider: Attila Cummings Condition: Improved Anticipated Discharge Date/Time: 03/15/23 08:46 Discharge Medications: Continued cyclobenzaprine 10 mg tablet 10 mg PO 3XD glipizide 10 mg tablet extended release 24hr 10 mg PO BID metoprolol succinate 200 mg tablet extended release 24 hr 200 mg PO DAILY chlorthalidone 50 mg tablet 50 mg PO DAILY meloxicam 7.5 mg tablet 7.5 mg PO DAILY potassium chloride [Klor-Con M20] 20 mEq tablet,ER particles/crystals 20 meq PO BID amitriptyline 25 mg tablet 25 mg PO QPM amlodipine 10 mg tablet 10 mg PO DAILY gemfibrozil 600 mg tablet 600 mg PO BID metformin 1,000 mg tablet 1,000 mg PO BID lisinopril 40 mg tablet 40 mg PO DAILY diazepam 5 mg tablet 5 mg PO ONCE oxycodone 5 mg tablet PO insulin lispro [Humalog KwikPen Insulin] 100 unit/mL insulin pen subcut GaviLyte-C 240-22.72-6.72 -5.84 gram recon soln PO insulin degludec [Tresiba FlexTouch U-200] 200 unit/mL (3 mL) insulin pen subcut multivitamin [Daily Multi-Vitamin] Tablet 1 tab PO DAILY aspirin 81 mg tablet,chewable 81 mg PO DAILY Discharge Orders: Discharge Order (Routine); Ordered 03/15/23 Ordered By: Eh Holloway Patient Education: A-fib (Atrial Fibrillation) (DC) Additional Instructions: Contact your doctor at [facility] to arrange for cardiology appointment. I recommend you have an echocardiogram and possibly monitoring of your heart as an outpatient. If you have recurrence of your rapid heartbeat return to an emergency department for evaluation. We did not start you on anticoagulation for your atrial fibrillation with rapid heart rate because it resolved on its own and because you have had a longstanding history of blood in your urine. Your bladder is likely chronically colonized by bacteria because you have a suprapubic catheter. If you are feeling well, we do not need to do testing or treatment for this. We did do a urine culture today and will have results in 1-2 days. Unless you are feeling ill this does not require treatment. Activity Level: No Restrictions Discharge Diet: Regular Follow Up Appointments: Attila Cummings MD [Primary Care Provider] - Forms: [facility] Info Instructions
== END 2023-03-15 09:30 | disposition home or self-care (01) ==
LOC: ED 03-15 01:44 → MEDSURG 03-15 02:12
PROVIDERS: Family Medicine; Internal Medicine; Admitting Provider Family Medicine; Emergency Provider Student in an Organized Health Care Education/Training Program; PCP Family Medicine; Visit Provider Family Medicine
DX: N39.0 Urinary tract infection, site not specified (principal); I48.0 Paroxysmal atrial fibrillation; R00.0 Tachycardia, unspecified; R74.02 Elevation of levels of lactic acid dehydrogenase [LDH]; R79.89 Other specified abnormal findings of blood chemistry; R31.9 Hematuria, unspecified; R10.9 Unspecified abdominal pain; T83.098A Other mechanical complication of other urinary catheter, initial encounter; I10 Essential (primary) hypertension; B96.20 Unspecified Escherichia coli [E. coli] as the cause of diseases classified elsewhere; K76.0 Fatty (change of) liver, not elsewhere classified; K59.00 Constipation, unspecified; D12.6 Benign neoplasm of colon, unspecified; E11.9 Type 2 diabetes mellitus without complications; G47.33 Obstructive sleep apnea (adult) (pediatric); E66.9 Obesity, unspecified; Z68.41 Body mass index [BMI] 40.0-44.9, adult; Z79.82 Long term (current) use of aspirin; Z79.84 Long term (current) use of oral hypoglycemic drugs; Z79.4 Long term (current) use of insulin; Z93.59 Other cystostomy status; Z96.0 Presence of urogenital implants; Z87.440 Personal history of urinary (tract) infections; Z87.891 Personal history of nicotine dependence; Z66 Do not resuscitate
CPT/HCPCS: 36415; 51702; 74177; 80048; 81001; 82947; 82962; 83605; 84443; 84484; 85025; 87040; 87086; 87186; 93005; 96365; 96366; 96375; 96376; 99283; 99284; 99285; G0378; A9153; A9270; J0153; J1335; J7030; Q9967